=== PATIENT | female | born 1960 | race Caucasian/White ===

== ENCOUNTER 2018-02-05 12:16 | Emergency (ER) | payer OTHER ==
--- OUTSIDE RECORDS SUMMARY | 2018-02-05 12:23 | XMS REPORT ---
:1960 External Reference #:[id number] [facility] Address [address], [address] [place] [address] Phone [phone] Care Team Providers Name Role Phone Maura Mcintyre MD Care Team Information Manager Stone Unavailable Maura Mcintyre MD Primary Care Physician Unavailable Payers Type Date Identification Numbers Payment Provider Subscriber Health Maintenance Expires: Policy Number: [facility] Judy Long [employer] (O) 01/23/2016 [id number] Group Name: [id number] [address] PayID: [id number] [place] [address] [facility] Policy Number: [id number] Ignacia Long Group Number: [id number] [address] PayID: [id number] [place] [address] Problems Date Description Provider Status Onset: 05/02/2011 Gynecologic examination Frantz Simpson M.D. Active Onset: 05/02/2011 Female climacteric state Frantz Simpson M.D. Active Onset: 05/02/2011 Disorder of breast Frantz Simpson M.D. 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 Abuse No history of abuse Cigarette Use Never Smoked Cigarettes ETOH Use Drinks Alcoholic Beverages Rarely Recreational Drug Use Denies Drug Use Smoking Patient has never smoked Daily Caffeine Current Caffeine User 1-2 daily Enjoy Exercising Patient enjoys exercising DAILY Exercise Type/Frequency Exercises regularly 5-7 x week (3-5 days aerobics, 2- yoga) Tattoo/Piercing Negative For Tattoo Tattoo/Piercing Pierced ears Currently Active Patient is currently sexually active Age 1st [place] 26 Years Old # Partners in a Lifetime 2 # Partners in a Lifetime Has been with current partner 22 YRS for over 10 years STD's No STD History Allergies, Adverse Reactions, Alerts Date Description Reaction Status Severity Comments 2017 NKDA active 04/07/2010 Morphine NYSTAGMUS inactive Medications Medication Date Status Form Strength Qnty SIG Indications Ordering Provider Multivitamin & / Active Liquid plus iron Unknown Mineral 0000 1 tab daily Ibuprofen / Active Tablets 400mg 400-800mg Unknown 0000 PO bid-qid prn Omeprazole / Active Capsules 20mg 30cap 1-2 po qd Unknown [address] clark Gabapentin / Active Capsules 300mg 180ca 2 caps at Maura 0000 ps bedtime MD Miguelina Aspir-Low / Active Tablets DR 81mg 2 daily Unknown 0000 Cyclobenzaprine / Active Tablets 5mg 1/2 tab to Unknown HCL 0000 1 tablet at bedtime prn Amoxicillin / Active Tablets 500mg 16tab 4 capsules Maura 0000 s before any Miguelina dental procedure Gabapentin / Active Capsules 100mg 90cap 1 cap Maura 0000 s daily MD Miguelina Vitamin D / Active Capsules 2000Unit 1 by mouth Unknown (Ergocalciferol) 0000 every day Activella 01/29/ Hx Tablets 1-0.5mg 1 po qd Frantz 2010 - [place], 03/19/ M.D. 2016 Angeliq 01/03/ Hx Tablets 0.5-1mg 1pack 1 po qd Frantz 2010 - [place], 03/08/ M.D. 2010 Vitamin D 04/30/ Hx Capsules 1000Unit 60cap 1 po qd 268.9 Frantz 2009 - [place], M.D. 2017 Vital Signs Date Vital Result Comment 01/29/2018 BP Systolic 116 mmHg BP Diastolic 79 mmHg Body Temperature 97.9 F Heart Rate 89 /min Respiratory Rate 18 /min Height 65 inches 5'5" Weight 151.38 lb BMI (Body Mass Index) 25.2 kg/m2 BSA (Body Surface Area) 1.76 m2 [place] body weight in kilograms 57 O2 % BldC Oximetry 97 % 2017 BP Systolic 113 mmHg BP Diastolic 67 mmHg Heart Rate 100 /min Respiratory Rate 14 /min Height 65 inches 5'5" Weight 147.12 lb BMI (Body Mass Index) 24.5 kg/m2 BSA (Body Surface Area) 1.74 m2 [place] body weight in kilograms 57 O2 % BldC Oximetry 96 % 05/02/2011 BP Systolic Sitting Left Arm 135 mmHg BP Diastolic Sitting Left Arm 69 mmHg Heart Rate 74 /min Respiratory Rate 12 /min Weight 130.00 lb 03/08/2011 BP Systolic Sitting Left Arm 131 mmHg BP Diastolic Sitting Left Arm 70 mmHg Heart Rate 70 /min Respiratory Rate 12 /min Height 66 inches 5'6" Weight 131.00 lb BMI (Body Mass Index) 21.1 kg/m2 Last Menstrual Period 0 on HRT 04/07/2010 BP Systolic Sitting Right Arm 136 mmHg BP Diastolic Sitting Right Arm 79 mmHg Heart Rate 78 /min Respiratory Rate 16 /min Results Test Date Test Result H/L Range Note Laboratory test finding 04/07/2010 ThinPrep Pap: Endocervix See Note 1 Smear 1 PAP: FINAL REPORT SPECIMEN ADEQUACY: SATISFACTORY, BUT BORDERLINE SQUAMOUS CELLULARITY AIR-DRYING ARTIFACT INTERPRETATION: NEGATIVE FOR INTRAEPITHELIAL LESION OR MALIGNANCY COMMENT: ATROPHIC SMEAR PATTERN REPEAT PAP AFTER INTRAVAGINAL ESTROGEN THERAPY IF INDICATED THINPREP PREPARED PAP SLIDE # Prepared in the Cytology laboratory from the ThinPrep sample is 1 ThinPrep smear. 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 Post ? Menopause? LMP date: UNK Last Pap: at [facility]? Abnormal Pap? If Yes, date: 12/07/08 If patient had related surgical procedure: Related Therapy: Significant Clinical History: V72.31 DISCLAIMER: The Pap smear is a screening test and not a diagnostic procedure. False negative and false positive results can and do occur for a number of reasons. Regular screening provides an aid in detecting treatable cervical abnormalities, but should not be used as the only means for detecting cervical dysplasia and carcinoma. Signed RAFA HAMMOND 04/10/10 Procedures Date CPT Code Description Status Comment 09/09/2017 Mammogram Completed 02/08/2017 Mammogram Completed 08/15/2016 Mammogram Completed 02/20/2016 02721 Echocardiogram Complete Completed 08/04/2015 Mammogram Completed 06/24/2010 Colonoscopy Completed 04/13/2010 Mammogram Completed 03/24/2010 Bone Mineral Density Test Completed Document: 04/13/10 - Bone Scan Result Encounters Type Date Location Provider CPT E/M Dx Office Visit 2017 11:00a [place] [address] R00.0 I34.0 R05 M54.5 Office Visit 02/20/2016 3:25p [place] [address] I48.3 Office Visit 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 45602 V72.31 627.2 611.9 Office Visit 03/08/2011 4:00p oil pipe inspector Office Frantz Simpson M.D. 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 09158 627.2 Plan of Care Future Appointment(s):03/20/2018 2:40 pm - Maura Mcintyre MD at [facility] Jfrkre4001/29/2018 - Maura Mcintyre MDI34.0 Nonrheumatic mitral (valve) insufficiencyNew Labs:CMP Panel (14 Test)CBC W/Auto Diff & PLTLipid Panel( Lip2c)Comments:--had repair at [facility] with post op complications and completd Cardiac rehab-Has tachycardia since procedure but has not impaired her abilities -continue f/u with Dr. 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 and her energy level was better-Advised her to take at night time onlyG47.33 Obstructive sleep apnea (adult) (pediatric)New Labs:CMP Panel (14 Test)CBC W/ Auto Diff & PLTLipid Panel(Lip2c)Hemoglobin A1cTSH Thyroid Stimulating HormT4 Free ThyroxineComments:-has mild sleep apnea and has been using CPAP and doesn't always sleep well with it -Feels her day time fatigue is related to her neurontin that she is taking for neurogenic cough -will check thyroid panel and labsM15.9 Polyosteoarthritis, unspecifiedNew Labs:Mariluz Screen Eia W/Refl DS- DnaRheumatoid FactorLyme Igg/Igm QL Ser Western BLEsr Sedimentation RateCCP Abs Igg/Iga QN Ser/PlasComments:-check serologies and lyme panelAllFollow up: fasting blood work prior to upcoming PE (offsite lab, pls give slip) Has upcoming PE
[2018-02-05] MEDS ORDERED: NS 0.9% 1000 ML* 1,000 ML IV SCH (13:00)
[2018-02-05] MEDS ORDERED: Ondansetron INJ* 2 MG/ML VIAL IV ONE (13:00)
[2018-02-05] MEDS ORDERED: Meclizine TAB* 12.5 MG PO ONE (13:01)
--- NOTE | 2018-02-05 13:15 | UC ---
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 FELT UNSTEADY ON HER FEET. TRIED TO LAY DOWN BUT FELT WORSE. VOMITED 6 TIMES. SYMPTOMS ARE AGGRAVATED BY CHANGE IN POSITION, HEAD MOVEMENT. DO NOT RESOLVE WHEN SHE IS STILL. NO HEARING LOSS, THOMAS, SOB, CP. NO RECENT TRAUMA. HAS HAD SIMILAR SX IN THE PAST PT IS EASILY MOTION SICK BUT NOT THIS BAD. 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 - History Of Current Complaint Chief Complaint: UCDizziness Stated Complaint: DIZZY VOMITING Time Seen by Provider: 02/05/18 12:27 Hx Obtained From: Patient Hx Last Menstrual Period: 11 years Onset/Duration: Sudden Onset, Lasting Hours, Still Present Timing: Constant Severity Initially: Moderate Severity Currently: Moderate Pain Intensity: 0 Pain Scale Used: 0-10 Numeric Character: Room Spinning, Dizzy Aggravating Factor(s): Position Change, Supine To Erect, Change In Head Position Alleviating Factor(s): Rest Associated Signs And Symptoms: Positive: Nausea, Vomiting. Negative: Diaphoresis, Tinnitus, Chest Pain, SOB, Visual Changes, Decreased Oral Intake - Allergies/Home Medications Allergies/Adverse Reactions: Allergies Allergy/AdvReac Type Severity Reaction Status Date / Time No Known Allergies Allergy Verified 02/05/18 12:33 Home Medications: Home Medications Gabapentin CAP(*) [Neurontin 100 mg CAP(*)] 100 mg PO QAM 02/05/18 [History Confirmed 02/05/18] Gabapentin CAP(*) [Neurontin 300 CAP(*)] 600 mg PO BEDTIME 02/05/18 [History Confirmed 02/05/18] PMH/Surg Hx/FS Hx/Imm Hx Other Cardiovascular History: MVP S/P REPAIR - Surgical History Surgical History: Yes Surgery Procedure, Year, and Place: MITRAL VALVE REPAIR. HERNIA REPAIR - TWICE. APPENEDECTOMY. OOPHERECTOMY- Lt - Family History Known Family History: Positive: Cardiac Disease - Social History Alcohol Use: None Substance Use Type: None Smoking Status (MU): Never Smoked Tobacco Review of Systems Constitutional: Negative Skin: Negative Respiratory: Negative Cardiovascular: Negative Gastrointestinal: Vomiting, Nausea Neurological: Other - DIZZY All Other Systems Reviewed And Are Negative: Yes Physical Exam Triage Information Reviewed: Yes Appearance: Well-Appearing, No Pain Distress, Well-Nourished Vital Signs: Initial Vital Signs Temp 97.9 F 02/05/18 12:28 Pulse 83 02/05/18 12:28 Resp 16 02/05/18 12:28 BP 125/67 02/05/18 12:28 Pulse Ox 97 02/05/18 12:28 Vital Signs Reviewed: Yes Eyes: Positive: Conjunctiva Clear ENT: Positive: Hearing grossly normal, Pharynx normal, TMs normal Neck: Positive: Supple, Nontender, No Lymphadenopathy Respiratory Exam: Normal Cardiovascular Exam: Normal Abdomen Description: Positive: Nontender, Soft Bowel Sounds: Positive: Present Musculoskeletal: Positive: No Edema Neurological: Positive: Alert Psychological: Positive: Age Appropriate Behavior Skin: Negative: rashes - CN II-XII GROSSLY INTACT BILATERALLY. RAPID ALTERNATING MOVEMENTS INTACT. NEG PRONATOR DRIFT. 5/5 STRENGTH. FINGER TO NOSE INTACT. Diagnostics - EKG Cardiac Rate: NL - 78 BPM Cardiac Rhythm: Sinus: Normal - PROLONGED MD Ectopy: None ST Segment: Normal Re-Evaluation - Re-Evaluation First Eval Re-Evaluation Time: 14:25 - FEELS MUCH IMPROVED AFTER 1L NS, 4MG ZOFRAN AND 25 MG MECLIZINE. READY TO D/C Change: Improved Dizzy Course/Dx - Course Course Of Treatment: DISCUSSED WITH PATIENT TRANSFER TO ED FOR STAT LAB, CONTINUED HEART MONITORING AND POSSIBLE IMAGING. PATIENT DECLINED. STATES SHE WOULD LIKE TO TREAT VERTIGO AND FOLLOW-UP OUTPT. PT NOT CONCERNED ABOUT CARDIAC OR INTRACRANIAL PATHOLOGY. SX WERE MUCH IMPROVED AFTER 1L NS, 4MG ZOFRAN AND 25MG MECLIZINE. WILL D/C WITH CLOSE OUTPT F/U. - Differential Dx/Diagnosis Provider Diagnoses: VERTIGO Discharge - Sign-Out/Discharge Documenting (check all that apply): Patient Departure - Discharge Plan Condition: Stable Disposition: HOME Prescriptions: Meclizine HCl [Motion Sickness Relief] 25 mg PO TID PRN #30 tablet PRN Reason: Dizziness Ondansetron ODT TAB* [Zofran Odt TAB*] 4 mg PO Q6H PRN #20 tab.odt PRN Reason: Nausea/Vomiting Patient Education Materials: Vertigo (ED) Referrals: Maura Mcintyre MD [Primary Care Provider] - If Needed Additional Instructions: YOU RECEIVED 1L NORMAL SALINE, 25 MG MECLIZINE AND 4MG ZOFRAN TODAY WITH IMPROVEMENT OF YOUR SYMPTOMS. BE SURE TO STAY HYDRATED AND RESTED. GO TO ED WITHOUT FAIL IF YOU DEVELOP WORSENING DIZZINESS, SHORTNESS OF BREATH, CHEST PAIN, NAUSEA, SWEATS OR ANY OTHER CONCERNING SYMPTOMS. - Billing Disposition and Condition Condition: STABLE Disposition: Home
[2018-02-05 13:26] VITALS: BP 117/59
== END 2018-02-05 14:57 | disposition home or self-care (01) ==
LOC: UCEAST 12:16
DX: R42 Dizziness and giddiness (principal); R11.2 Nausea with vomiting, unspecified
CPT/HCPCS: 93005; 96360; 96374; 99212; A9270-GY; G0463; J2405

== ENCOUNTER 2018-08-20 09:59 | Emergency (ER) | payer OTHER ==
[2018-08-20 10:25] VITALS: BP 116/99
[2018-08-20] MEDS ORDERED: Albuterol/Ipratropium NEB.SOL* Albuterol 2.5 MG/Ipratropium 0.5 MG 3 ML INH ONE (11:02)
[2018-08-20 11:12] LABS: Influenza A Molecular POSITIVE (Negative)
--- NOTE | 2018-08-20 11:20 | UC ---
FLU HPI - HPI Summary HPI Summary: Pt presents with c/o sudden onset of fever, chills, body aches and cough X 2 days. - History of Current Complaint Chief Complaint: UCRespiratory Stated Complaint: FLU SX'S Time Seen by Provider: 08/20/18 10:55 Hx Obtained From: Patient Hx Last Menstrual Period: 11 years ?: No Onset/Duration: Sudden Onset, Lasting Days, Still Present Severity Currently: Moderate Severity Initially: Moderate Pain Intensity: 5 Associated Signs & Symptoms: Positive: Fever, Myalgia, Cough, Headache Related Hx: Possible Flu/Infectious Exposure - Risk Factors Influenza Risk Factors: Negative - Allergy/Home Medications Allergies/Adverse Reactions: Allergies Allergy/AdvReac Type Severity Reaction Status Date / Time No Known Allergies Allergy Verified 08/20/18 10:16 Home Medications: Home Medications Acetaminophen [Acetaminophen Extra Strength] 500 mg PO Q6H PRN 08/20/18 [ History Confirmed 08/20/18] Aspirin 81 mg CHEW TAB* 162 mg PO DAILY 08/20/18 [History Confirmed 08/20/18] Benzonatate CAP* [Tessalon 100 MG CAP*] 100 mg PO TID PRN 08/20/18 [History Confirmed 08/20/18] Cholecalciferol TAB* [Vitamin D TAB*] 1,000 unit PO DAILY 08/20/18 [History Confirmed 08/20/18] Dextromethorphan Polistirex [Delsym] 30 mg PO BID PRN 08/20/18 [History Confirmed 08/20/18] Ibuprofen TAB* [Advil TAB*] 400 mg PO Q6H PRN 08/20/18 [History Confirmed ] Pseudoephedrine TAB* [Sudafed TAB*] 30 mg PO Q6H PRN 08/20/18 [History Confirmed 08/20/18] Statin Med 1 tab PO DAILY 08/20/18 [History] PMH/Surg Hx/FS Hx/Imm Hx Previously Healthy: Yes - Surgical History Surgical History: Yes Surgery Procedure, Year, and Place: MITRAL VALVE REPAIR. HERNIA REPAIR - TWICE. APPENEDECTOMY. OOPHERECTOMY- Lt - Family History Known Family History: Positive: Cardiac Disease - Social History Occupation: Employed Full-time Lives: With Family Alcohol Use: None Substance Use Type: None Smoking Status (MU): Never Smoked Tobacco Have You Smoked in the Last Year: No - Immunization History Vaccination Up to Date: Yes Review of Systems All Other Systems Reviewed And Are Negative: Yes Constitutional: Positive: Fever, Chills, Fatigue Skin: Positive: Negative Eyes: Positive: Negative ENT: Positive: Sinus Congestion Respiratory: Positive: Shortness Of Breath, Cough Cardiovascular: Positive: Negative Gastrointestinal: Positive: Negative Genitourinary: Positive: Negative Motor: Positive: Negative Neurovascular: Positive: Negative Musculoskeletal: Positive: Myalgia Neurological: Positive: Headache Psychological: Positive: Negative Is Patient Immunocompromised?: No Physical Exam Triage Information Reviewed: Yes Appearance: Ill-Appearing Vital Signs: Initial Vital Signs Temp 100.6 F 08/20/18 10:19 Pulse 112 08/20/18 10:19 Resp 18 08/20/18 10:19 BP 116/99 08/20/18 10:19 Pulse Ox 96 08/20/18 10:19 Vital Signs Reviewed: Yes Eye Exam: Normal ENT: Positive: Nasal congestion Dental Exam: Normal Neck exam: Normal Respiratory: Positive: No respiratory distress, Decreased breath sounds Cardiovascular Exam: Normal Cardiovascular: Positive: Tachycardia Musculoskeletal Exam: Normal Neurological Exam: Normal Psychological Exam: Normal Skin Exam: Normal Flu Course/Dx - Course Course Of Treatment: I have discussed with the pt my concern for secondary infection of pneumonia. Pt verbalized understanding and agrees to plan of care. - Differential Dx/Diagnosis Differential Diagnosis/HQI/PQRI: Influenza, Pneumonia Provider Diagnosis: Influenza A, Bronchitis Discharge - Sign-Out/Discharge Documenting (check all that apply): Patient Departure All imaging exams completed and their final reports reviewed: No Studies - Discharge Plan Condition: Stable Disposition: HOME Prescriptions: Albuterol HFA INHALER* [Ventolin HFA Inhaler*] 2 puff INH Q4H PRN #1 mdi PRN Reason: Sob/Wheezing Azithromycin TAB* [Zithromax TAB (Z-SEEMA) 250 mg #6 tabs] 2 tab PO .TODAY, THEN 1 DAILY #1 seema Oseltamivir CAP* [Tamiflu CAP*] 75 mg PO Q12H #10 cap oxyCODONE/Acetamin 5/325 MG* [Percocet 5/325 TAB*] 1 tab PO Q8H PRN #9 tab MDD 3 PRN Reason: Cough Patient Education Materials: Influenza (DC), Acute Bronchitis (ED) Referrals: Maura Mcitnyre MD [Primary Care Provider] - If Needed - Billing Disposition and Condition Condition: STABLE Disposition: Home
== END 2018-08-20 11:35 | disposition home or self-care (01) ==
LOC: UCCORT 09:59
DX: J10.1 Influenza due to other identified influenza virus with other respiratory manifestations (principal); Z79.82 Long term (current) use of aspirin
CPT/HCPCS: 99212; A9270-GY; G0463